=== PATIENT | female | born 1955 | race Caucasian/White ===

== ENCOUNTER 2017-09-13 12:30 | Emergency (ER) | payer OTHER ==
[2017-09-13] MEDS: ACETAMINOPHEN 500 MG TAB PO (15:08)
== END 2017-09-13 17:22 | disposition home or self-care (01) ==
LOC: FTE 12:30
DX: S63.614A Unspecified sprain of right ring finger, initial encounter (principal); S02.2XXA Fracture of nasal bones, initial encounter for closed fracture; W01.0XXA Fall on same level from slipping, tripping and stumbling without subsequent striking against object, initial encounter; Y92.9 Unspecified place or not applicable
CPT/HCPCS: 29130; 70450; 70486; 73140; 99285-25